=== PATIENT | female | born 1955 | race Caucasian/White ===

== ENCOUNTER 2019-11-06 06:42 | Emergency (ER) | payer OTHER ==
[~2019-11-06] VITALS: Ht 162.6 cm; Wt 76.7 kg
[2019-11-06 09:37] VITALS: BP 137/78
== END 2019-11-06 09:37 | disposition home or self-care (01) ==
LOC: ED 06:42
DX: S52.591A Other fractures of lower end of right radius, initial encounter for closed fracture (principal); W01.0XXA Fall on same level from slipping, tripping and stumbling without subsequent striking against object, initial encounter; Y93.89 Activity, other specified; Y92.89 Other specified places as the place of occurrence of the external cause; Y99.8 Other external cause status
CPT/HCPCS: J2001; J3010; Q0092